=== PATIENT | male | born 1990 | race Two or more races ===

== ENCOUNTER 2022-08-20 12:22 | Emergency (ER) | payer OTHER, SELFPAY ==
[2022-08-20 13:19] VITALS: BP 127/76; PULSE 61; RESP 18; TEMP 36.6; O2SAT 99; BMI 20.2
[2022-08-20 13:49] LABS: MANUAL DIFF FLAG NO
[2022-08-20 13:52] LABS: Basophils Absolute Auto 0.1 X10*3/uL (0.0-0.2); Basophils Percent Auto 0.9 % (0-2); Eosinophils Absolute Auto 0.2 X10*3/uL (0.0-0.4); Eosinophils Percent Auto 3.6 % (0-4); Hematocrit 44.7 % (42.0-52.0); Hemoglobin 15.3 g/dl (14.0-18.0); Lymphocytes Absolute Auto 2.2 X10*3/uL (1.2-4.9); Lymphocytes Percent Auto 38.1 % (20-40); Mean Corpuscular HGB Conc 34.2 g/dl (31.0-36.0); Mean Corpuscular Hemoglobin 30.1 pg (27.0-33.0); Mean Corpuscular Volume 87.8 fL (80.0-98.0); Mean Platelet Volume 11.5 fL (9.4-12.4); Monocytes Absolute Auto 0.5 X10*3/uL (0.1-1.2); Monocytes Percent Auto 8.3 % (2-11); Neutrophils Absolute Auto 2.8 x10*3/uL (2.0-8.3); Neutrophils Percent Auto 49.1 % (45-73); Platelet Count 280 X10*3/uL (160-400); Red Blood Count 5.09 X10*6/uL (4.60-5.80); Red Cell Distribution Width 12.6 % (11.0-16.0); White Blood Count 5.8 X10*3/uL (4.8-10.8)
[2022-08-20 13:53] LABS: Appearance Urine Clear; Color Urine Yellow; Glucose Urine UA Negative (Negative); Leukocyte Esterase Urine Negative (Negative); Nitrite Urine Negative (Negative); Urine Blood Negative (Negative); Urine Ketones Negative (Negative); Urine Protein Negative (Neg-Trace)
[2022-08-20 14:03] LABS: Amphetamine Screen Urine Not Detected (Not Detect); Barbiturates, Urine Not Detected (Not Detect); Benzodiazepines Screen Urine Not Detected (Not Detect); Cannabinoid Screen Urine Not Detected (Not Detect); Cocaine Screen Urine Not Detected (Not Detect); Fentanyl, urine Not Detected (Not Detect); Opiate Screen Urine Not Detected (Not Detect); Phencyclidine Screen Urine Not Detected (Not Detect)
[2022-08-20 14:04] LABS: Alanine Aminotransferase 14 U/L (0-40); Albumin Level 4.9 g/dL (3.5-5.0); Alkaline Phosphatase 79 U/L (39-117); Anion Gap 15 (12-20); Aspartate Amino Transferase 19 U/L (5-37); Bilirubin Direct 0.7 mg/dL (0.0-0.5); Bilirubin Total 2.8 mg/dL (0.0-1.0); Blood Urea Nitrogen 6 mg/dL (9-16); Calcium 9.9 mg/dL (8.4-10.2); Carbon Dioxide 27 mmol/L (22-29); Chloride 104 mmol/L (96-108); Creatinine Clr Calc Pharmacy 124.6; Estimated Glomerular Filt Rate > 60; Glucose Random 93 mg/dL (60-115); Lipase 18 U/L (8-78); Potassium 4.1 mmol/L (3.3-5.1); Sodium 142 mmol/L (135-145); Total Protein 7.8 g/dL (6.5-8.0)
[2022-08-20 14:23] LABS: COVID-19 Test Negative (Negative); IDNOW Serial# 55D5AD1C
--- NOTE | 2022-08-20 16:34 | MHC.CARE ---
BHN Smart sheet completed att
--- OUTSIDE RECORDS SUMMARY | 2022-08-20 16:39 | XMS_ITS | Continuity of Care Document ---
:1990 Author Organization [facility] Address [address] [place] [address]- Care Team Providers Name Role Phone Not on Staff, PCP Primary Care Physician Unavailable Encounter [facility] Date(s): 08/03/22 - 08/04/[address] [address]- Encounter Diagnosis Malaise and fatigue (Final) - 08/03/22 Discharge Disposition: A-D/C Home Attending Physician: Khai Johnson MD Admitting Physician: Khai Johnson MD Referring Physician: Not on Staff, Referring MD Allergies, Adverse Reactions, Alerts No Known Allergies Medications acetaminophen 325 mg oral capsule 2 capsule = 650 mg, By Mouth, Every 4 hours, PRN as needed for pain, # 90 capsule, 0 Refills, Acute 08/03/23 23:17:00 EDT, 08/03/22 23:17:00 EDT, Capsule, [facility]/pharmacy #[id number], Partial fill upon patient request if the prescription is for a schedule II o... Start Date: 08/03/22 Stop Date: 08/03/23 Status: Orderedibuprofen 400 mg oral tablet 400 mg, 1, tablet, By Mouth, Every 4 hours, PRN, # 60 tablet, Refills 0, Tot. Refills 0, Acute 08/03/23 23:17:00 EDT, for pain, 08/03/22 23:17:00 EDT, Route to Pharmacy Electronically, [id number], Partial fill upon patient request if the presc... Start Date: 08/03/22 Stop Date: 08/03/23 Status: Orderedondansetron 4 mg oral tablet, disintegrating 1 tablet = 4 mg, By Mouth, Every 8 hours, PRN as needed for nausea/vomiting, # 12 tablet, 0 Refills,Maintenance, 06/16/22 16:06:00 EDT, DIS Tablet, [id number], Partial fill upon patient request if the prescription is for a schedule II opioid... Start Date: 06/16/22 Status: OrderedPepcid 20 mg oral tablet 1 tablet = 20 mg, By Mouth, Daily, # 30 tablet, 0 Refills, Maintenance, 06/16/22 16:07:00 EDT, Tablet, [id number], Partial fill upon patient request if the prescription is for a schedule II opioid drug. Start Date: 06/16/22 Status: Ordered Results Orders for Microbiology Reports Name Date Malaria Smear 08/03/22 Microbiology Reports TEST:Malaria Smear STATUS:Auth (Verified) BODY SITE: SOURCE:Blood COLLECTED DATE/TIME:08/03/22 7:38 PMMalaria Smear SPECIMEN DESCRIPTION : BLOOD SPECIAL REQUESTS : NONE DIRECT EXAM : NO INTRA OR EXTRA-ERYTHROCYTIC PARASITES OBSERVED ON THIN SMEARS NO PARASITES OBSERVED ON THICK SMEARS REPORT STATUS : FINAL 08/04/2022 Vital Signs Most recent to oldest 1 2 3 [Reference Range]: Oxygen Saturation [94-100 98 % 98 % 98 % %] (08/03/22 11:01 PM) (08/03/22 7:44 PM) (08/03/22 6:48 PM) Pulse Rate [55-90 bpm] 79 bpm 73 bpm 68 bpm (08/03/22 11:01 PM) (08/03/22 7:44 PM) (08/03/22 6:48 PM) Blood Pressure 114/73 mm Hg 116/79 mm Hg 123/72 mm Hg [90-138/55-84 mm Hg] (08/03/22 11:01 PM) (08/03/22 7:44 PM) (09/14 6:48 PM) Respiratory Rate [16-30 18 br/min 17 br/min 18 br/mi n br/min] (08/03/22 11:01 PM) (08/03/22 7:44 PM) (08/03/22 6:48 PM) Temperature [96.8-100.4 98.6 DegF 98.4 DegF DegF] (08/03/22 7:44 PM) (08/03/22 6:48 PM) Mode of Delivery (Oxygen) Room air Room air Room a ir (08/03/22 11:01 PM) (08/03/22 7:44 PM) (08/03/22 6:48 PM) Blood pressure sites Arm, left Arm, left Arm, right (08/03/22 11:01 PM) (08/03/22 7:44 PM) (08/03/22 6:48 PM) Temperature Route Oral Oral (08/03/22 7:44 PM) (08/03/22 6:48 PM) Patient Care team information PersonnelName: Not on Staff, PCP
--- OUTSIDE RECORDS SUMMARY | 2022-08-20 16:40 | XMS_ITS | Continuity of Care Document ---
:1990 Author Organization [facility] Address [address] [place] [address]- Care Team Providers Name Role Phone Not on Staff, PCP Primary Care Physician Unavailable Encounter [facility] Date(s): 06/16/22 - 06/16/[address] [address]- Encounter Diagnosis Abdominal pain (Final) - 06/16/22 Dyspepsia (Final) - 06/16/22 Discharge Disposition: A-D/C Home Attending Physician: Carmen Gutiérrez MD Admitting Physician: Carmen Gutiérrez MD Referring Physician: Not on Staff, Referring MD Allergies, Adverse Reactions, Alerts No Known Allergies Medications ondansetron 4 mg oral tablet, disintegrating 1 tablet [...] opioid drug. Start Date: 06/16/22 Status: Ordered Vital Signs Most recent to oldest 1 2 3 [Reference Range]: Oxygen Saturation [94-100 %] 100 % 98 % 96 % (06/16/22 2:58 PM) (06/16/22 12:49 PM) (06/16/22 10 :05 AM) Pulse Rate [55-90 bpm] 72 bpm 68 bpm 80 bpm (06/16/22 2:58 PM) (06/16/22 12:49 PM) (06/16/22 10 :05 AM) Blood Pressure [90-138/55-84 106/69 mm Hg 108/71 mm Hg 107 /70 mm Hg mm Hg] (06/16/22 2:58 PM) (06/16/22 12:49 PM) (06/16/22 10 :05 AM) Respiratory Rate [16-30 16 br/min 18 br/min 16 br/mi n br/min] (06/16/22 2:58 PM) (06/16/22 12:49 PM) (06/16/22 10 :05 AM) Temperature [96.8-100.4 98.4 DegF 98.6 DegF DegF] (06/16/22 12:49 PM) (06/16/22 10:05 AM) Mode of Delivery (Oxygen) Room air Room air (06/16/22 12:49 PM) (06/16/22 9:56 AM) Blood pressure sites Arm, left (06/16/22 12:49 PM) Temperature Route Oral Oral (06/16/22 12:49 PM) (06/16/22 10:05 AM)
--- NOTE | 2022-08-20 16:43 | ED_ITS ---
HPI - General Adult General Chief complaint: General Medical Stated complaint: CRISIS Time Seen by Provider: 08/20/22 15:52 Source: patient Mode of arrival: ambulatory Limitations: language barrier (Patient is from [place], he is Pashtun and he speaks Serbian) History of Present Illness HPI narrative: 31-year-old male who presents emergency department for evaluation abdominal pain, nausea, vomiting, depression and suicidal ideation. The patient states that he has been experiencing abdominal pain for approximately 2 months. He points to his epigastric and left upper quadrant when asked to localize the wanda n. States the pain is a constant, burning sensation which is worse immediately after he eats. He states he is not able to eat secondary to his pain. He has had nausea with 1-2 episodes of vomiting per day. The patient states that he had similar pain several years ago while he was in [facility] and was told that his pain was secondary to depression. The patient has been seen by a clinic in [place] and also at [facility] for this problem. He was started on a medication for the clinic which did help the pain but he is now office medication in the pain is returned. He states that he has lost his appetite secondary to the pain. The patient immigrated from [facility] approximately 1 year prior. He is getting support from [employer]. There is a [employer] worker here with him. The work told me that the patient's roommate had a heart attack and that this event made the patient more anxious and depressed. The patient told me he has been depressed for approximately 2-3 weeks. He describes this feeling as a constant sadness. He states he has had a similar feeling in the past but has never been treated for depression. Patient told the [employer] worker that if he did not get help for his abdominal pain he would consider hurting himself. The patient told me that he is depressed, he denied being suicidal, he states that he has no plan to hurt himself at this time. He has not hurt himself in the past. He denies homicidal ideation or the intent to hurt anyone else as well. The patient did have blood work at [facility] and the [employer] worker told me that his bilirubin was high. The patient may have had hepatitis C in [facility] but he is uncertain. The patient does have an appointment to see gastroenterology in September. He also has follow-up with a [facility] consult for his depression. Related Data Previous Rx's Medication Instructions Recorded omeprazole 20 mg capsule,delayed 20 mg PO DAILY 30 days #30 caps 08/20/22 release Allergies Allergy/AdvReac Type Severity Reaction Status Date / Time No Known Allergies Allergy Verified 08/20/22 16:42 Review of Systems Review of Systems: Yes all other systems are reviewed and are negative [facility] Past Medical History [facility] Narrative: Past medical history: None. Past surgical history: None. Social history: The patient uses oral tobacco/snuff. Denies alcohol use. He denies drug use. He is from [facility], he is Pashtun and speaks Serbian. He understands some [place] but needs a Serbian research director Social History Social History Advance Directives: No Physical Exam ED Vital Signs: Vital Signs - 24 hr 08/20/22 13:19 Temperature 98 F Pulse Rate 61 Respiratory Rate 18 Blood Pressure 127/76 Pulse Oximetry 99 Oxygen Delivery Method Room Air BMI result Body Mass Index 20.2 Const Other: Awake, alert, male patient, he is very thin (BMI 20.2), he is pleasant, he is cooperative, he does not appear to be in distress. Answers all questions appropriately. [facility] Head: Yes normal to inspection, Yes normocephalic and Yes atraumatic Ears: external ears normal General nose exam: Normal external nose present Face and sinus: Yes normal facial exam Mouth: Normal oral and palatal mucosa present Throat: Yes posterior oropharynx normal Eyes General: appearance normal, both eyes and all related structures Pupils: Equal, round and reactive pupils present Neck Neck: Yes normal visual inspection, Yes no lymphadenopathy, Yes trachea midline and Yes supple Chest Chest palpation & inspection: normal inspection of the chest and normal palpation of entire chest wall Resp Effort & Inspection: normal respiratory effort and able to speak in complete sentences Auscultation: clear to auscultation bilaterally Cardio Rate: regular rate Rhythm: regular rhythm Heart sounds: S1 normal heart sound present, S2 normal heart sound present and no murmurs GI Inspection: Yes normal to inspection Palpation (GI): Soft to palpation, Tenderness to palpation present (GI) in the epigastrum (Moderate) and in the LUQ (Mild) and no guarding Auscultation: normal bowel sounds General: Yes no CVA tenderness Back/Spine/Pelvis Back: no CVA tenderness Skin General skin exam: no rashes or lesions noted Neuro Cranial nerves: Yes CN's II-XII intact bilaterally and Yes Equal, round and reactive pupils present Cognition (Neuro): normal cognition Motor exam (neuro): 5/5 motor strength present throughout Extrem General: Yes normal to inspection Psych Appearance: grossly normal Speech and movement: Normal speech and movement present Affect: normal affect Attitude: cooperative Thought process: Normal thought process present Thought content: Normal thought content present Course Course Course Narrative: 31-year-old male who presents emergency department for evaluation of epigastric, burning like abdominal pain times weeks, loss of appetite nausea and with associated depression. Patient's physical examination did reveal epigastric and left upper quadrant tenderness otherwise was unremarkable. The patient's labora tory evaluation included a CBC, CMP, urinalysis and urine tox screen all of which were negative except for an elevated total bilirubin of 2.8. 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 Patient was reported to have hep atitis profile to the patient's labs hepatitis profile (A,B and C). Patient's pain was treated with Maalox 30 cc, viscous lidocaine 10 cc and 10 cc orally. Patient was started on Prilosec 30 mg once a day. I told her that he needs to be on this for 2 months. Patient does have a GI follow-up as an outpatient. At this time the patient denies being suicidal he states he just want to get help for his abdominal pain. He also denies being homicidal or wanting to injure others. The patient does have a referral to a crisis counselor as an outpatient therefore I do not think he needs to be seen by our [facility] provider. Medical Decision Making Lab Data Lab results reviewed: Yes I reviewed the patient's lab results. Result diagrams: 08/20/22 13:36 08/20/22 13:36 Labs: Lab Results 08/20/22 08/20/22 08/20/22 Range/Units 13:36 13:36 13:36 WBC 5.8 (4.8-10.8) X10*3/uL RBC 5.09 (4.60-5.80) X10*6/uL Hgb 15.3 (14.0-18.0) g/dl Hct 44.7 (42.0-52.0) % MCV 87.8 (80.0-98.0) fL MCH 30.1 (27.0-33.0) pg MCHC 34.2 (31.0-36.0) g/dl RDW 12.6 (11.0-16.0) % Plt Count 280 (160-400) X10*3/uL MPV 11.5 (9.4-12.4) fL Immature Gran % (Auto) 0.0 (0.0-0.4) % Neut % (Auto) 49.1 (45-73) % Lymph % (Auto) 38.1 (20-40) % [place] % (Auto) 8.3 (2-11) % Eos % (Auto) 3.6 (0-4) % Baso % (Auto) 0.9 (0-2) % Lymph # (Auto) 2.2 (1.2-4.9) X10*3/uL [place] # (Auto) 0.5 (0.1-1.2) X10*3/uL Eos # (Auto) 0.2 (0.0-0.4) X10*3/uL Baso # (Auto) 0.1 (0.0-0.2) X10*3/uL Abs Immat Gran (auto) 0.00 (0.00-0.03) X10*3/uL Absolute Neuts (auto) 2.8 (2.0-8.3) x10*3/uL Absolute Nucleated RBC 0.000 (0.0-0.012) X10*3/uL Nucleated RBC % (auto) 0.0 (0.0-0.2) /100WBC Sodium 142 (135-145) mmol/L Potassium 4.1 (3.3-5.1) mmol/L Chloride 104 (96-108) mmol/L Carbon Dioxide 27 (22-29) mmol/L Anion Gap 15 (12-20) BUN 6 L (9-16) mg/dL Creatinine 0.76 (0.5-1.4) mg/dL Estim Creat Clear Calc 124.6 Estimated GFR > 60 Random Glucose 93 (60-115) mg/dL Calcium 9.9 (8.4-10.2) mg/dL Total Bilirubin 2.8 H (0.0-1.0) mg/dL Direct Bilirubin 0.7 H (0.0-0.5) mg/dL AST 19 (5-37) U/L ALT 14 (0-40) U/L Alkaline Phosphatase 79 (39-117) U/L Total Protein 7.8 (6.5-8.0) g/dL Albumin 4.9 (3.5-5.0) g/dL Lipase 18 (8-78) U/L Urine Color Urine Appearance Urine pH (5.0-9.0) Ur Specific [place] (1.005-1.025) Urine Protein (Neg-Trace) mg/dL Urine Glucose (UA) (Negative) mg/dL Urine Ketones (Negative) mg/dL Urine Blood (Negative) Urine Nitrite (Negative) Ur Leukocyte Esterase (Negative) Urine Opiates Screen (Not Detect) Urine Fentanyl Screen (Not Detect) Ur Barbiturates Screen (Not Detect) Ur Phencyclidine Scrn (Not Detect) Ur Amphetamines Screen (Not Detect) U Benzodiazepines Scrn (Not Detect) Urine Cocaine Screen (Not Detect) U Marijuana (THC) Screen (Not Detect) COVID-19 ([facility]) Negative (Negative) COVID-19 Clin Com See Note 08/20/22 08/20/22 Range/Units 13:36 13:36 WBC (4.8-10.8) X10*3/uL RBC (4.60-5.80) X10*6/uL Hgb (14.0-18.0) g/dl Hct (42.0-52.0) % MCV (80.0-98.0) fL MCH (27.0-33.0) pg MCHC (31.0-36.0) g/dl RDW (11.0-16.0) % Plt Count (160-400) X10*3/uL MPV (9.4-12.4) fL Immature Gran % (Auto) (0.0-0.4) % Neut % (Auto) (45-73) % Lymph % (Auto) (20-40) % [place] % (Auto) (2-11) % Eos % (Auto) (0-4) % Baso % (Auto) (0-2) % Lymph # (Auto) (1.2-4.9) X10*3/uL [place] # (Auto) (0.1-1.2) X10*3/uL Eos # (Auto) (0.0-0.4) X10*3/uL Baso # (Auto) (0.0-0.2) X10*3/uL Abs Immat Gran (auto) (0.00-0.03) X10*3/uL Absolute Neuts (auto) (2.0-8.3) x10*3/uL Absolute Nucleated RBC (0.0-0.012) X10*3/uL Nucleated RBC % (auto) (0.0-0.2) /100WBC Sodium (135-145) mmol/L Potassium (3.3-5.1) mmol/L Chloride (96-108) mmol/L Carbon Dioxide (22-29) mmol/L Anion Gap (12-20) BUN (9-16) mg/dL Creatinine (0.5-1.4) mg/dL Estim Creat Clear Calc Estimated GFR Random Glucose (60-115) mg/dL Calcium (8.4-10.2) mg/dL Total Bilirubin (0.0-1.0) mg/dL Direct Bilirubin (0.0-0.5) mg/dL AST (5-37) U/L ALT (0-40) U/L Alkaline Phosphatase (39-117) U/L Total Protein (6.5-8.0) g/dL Albumin (3.5-5.0) g/dL Lipase (8-78) U/L Urine Color Yellow Urine Appearance Clear Urine pH 7.0 (5.0-9.0) Ur Specific [place] 1.010 (1.005-1.025) Urine Protein Negative (Neg-Trace) mg/dL Urine Glucose (UA) Negative (Negative) mg/dL Urine Ketones Negative (Negative) mg/dL Urine Blood Negative (Negative) Urine Nitrite Negative (Negative) Ur Leukocyte Esterase Negative (Negative) Urine Opiates Screen Not Detected (Not Detect) Urine Fentanyl Screen Not Detected (Not Detect) Ur Barbiturates Screen Not Detected (Not Detect) Ur Phencyclidine Scrn Not Detected (Not Detect) Ur Amphetamines Screen Not Detected (Not Detect) U Benzodiazepines Scrn Not Detected (Not Detect) Urine Cocaine Screen Not Detected (Not Detect) U Marijuana (THC) Screen Not Detected (Not Detect) COVID-19 ([facility]) (Negative) COVID-19 Clin Com ECG Data Attestation: I personally reviewed and interpreted this ECG as follows: Interpretation: 1710: Sinus bradycardia with a rate of 56, normal MN interval, QRS duration QTC interval, no ST segment elevation, no ST segment depression except for the bradycardia this is a normal EKG. Discharge Plan Discharge Clinical Impression: Gastritis, Depression Patient Disposition: Home, Self-Care Instructions: Gastritis (ED) Additional Instructions: Your stomach pain is caused by too much acid in your stomach which is causing inflammation of your stomach and your esophagus (the tube that connects your mouth to your stomach). The treatment is to shut off your acid production with the medication called Prilosec (omeprazole) 20 mg once a day for 2 months. Take Prilosec (omeprazole) 20 mg pills, 1 pill once a day for 1 month. This medication shuts off your acid production and lets the inflammation in your stomach and esophagus heal. You will also need to follow-up with a heavy media operator for further evaluation of your pain. Make sure you keep the appointment in September of 2022. Follow-up with the [facility] crisis counselor to help with your depression. Your blood work today was normal which is reassuring. You have a slight elevation in your total bilirubin of 2.8 but your indirect bilirubin 2.1 which is most likely normal for you. I did add a hepatitis profile which will test you for hepatitis A, hepatitis-B and hepatitis-C, this will not come back today and your doctor can check these results for you. Your EKG (electrical picture of your heart) was also normal which is reassuring. Follow-up with your doctor in 2 days. Please return to the emergency department if your symptoms get worse or if you develop any symptoms that are concerning to you. If you feel like you are going to hurt yourself or hurt others then you should return to the emergency department and we can get you help. Prescriptions: New omeprazole 20 mg capsule,delayed release(DR/EC) 20 mg PO DAILY 30 Days Qty: 30 0RF
--- NOTE | 2022-08-20 16:51 | ECG_ITS ---
Test Reason : ABDOMINAL PAIN Blood Pressure : / mmHG Vent. Rate : 056 BPM Atrial Rate : 056 BPM P-R Int : 164 ms QRS Dur : 080 ms QT Int : 402 ms P-R-T Axes : 068 053 033 degrees QTc Int : 387 ms Sinus bradycardia Possible Early repolarization Otherwise normal ECG No previous ECGs available Referred By: Blas Rosario Electronically Signed By:BRIAN MCKENNA MD
[2022-08-20] MEDS: Magnesium Hydrox/Alum Hydrox 30 ML ORAL.SUSP PO (16:54)
[2022-08-20] MEDS: Lidocaine HCl Viscous 2 % 15 ML SOLUTION 10 ML PO (16:55)
[2022-08-20] MEDS: PHENobarb/Hyoscy/Atropine/Scop 10 ML ELIXIR PO (16:58)
[2022-08-23 09:48] LABS: HBS Num1 98.12 mIU/mL (0-7.99); HBc Num1 0.11 S/CO (0.00-0.79); HBsAGNum1 0.18 S/CO (0.00-0.99); Hepatitis B Core Antibody Nonreactive (Nonreactive); Hepatitis B Surface Antigen Negative (Negative); ~HepC Num1 0.16 S/CO (0.00-0.79); ~Hepatitis B Surface Antibody REACTIVE (Nonreactive); ~Hepatitis C Antibody Nonreactive (Nonreactive)
[2022-08-25 08:01] LABS: Hepatitis A Antibody IgM 0.29 Index (0-0.79); ~Hepatitis A Antibody IgM Nonreactive (Nonreactive)
== END 2022-08-20 18:05 | disposition home or self-care (01) ==
PROVIDERS: Emergency Provider Emergency Medicine Emergency Medical Services
DX: F33.1 Major depressive disorder, recurrent, moderate (principal); R45.851 Suicidal ideations; R10.9 Unspecified abdominal pain; K29.70 Gastritis, unspecified, without bleeding; Z20.822 Contact with and (suspected) exposure to COVID-19; Z79.899 Other long term (current) drug therapy
CPT/HCPCS: 80048; 80076; 80307; 81003; 83690; 85025; 86704; 86706; 86709; 86803; 87340; 87635; 93005; 99283

== ENCOUNTER 2022-10-27 09:34 | Emergency (ER) | payer OTHER, SELFPAY ==
[2022-10-27 09:56] VITALS: BP 132/87; PULSE 72; RESP 18; TEMP 36.6; O2SAT 99; BMI 22.7
[2022-10-27 10:31] LABS: Hematocrit 45.8 % (42.0-52.0); Hemoglobin 15.9 g/dl (14.0-18.0); Mean Corpuscular HGB Conc 34.7 g/dl (31.0-36.0); Mean Corpuscular Hemoglobin 29.9 pg (27.0-33.0); Mean Corpuscular Volume 86.3 fL (80.0-98.0); Mean Platelet Volume 11.9 fL (9.4-12.4); Platelet Count 235 X10*3/uL (160-400); Red Blood Count 5.31 X10*6/uL (4.60-5.80); Red Cell Distribution Width 11.8 % (11.0-16.0); White Blood Count 7.8 X10*3/uL (4.8-10.8)
[2022-10-27 10:56] LABS: Alanine Aminotransferase 22 U/L (0-40); Albumin Level 4.8 g/dL (3.5-5.0); Alkaline Phosphatase 82 U/L (39-117); Anion Gap 10 (12-20); Aspartate Amino Transferase 20 U/L (5-37); Bilirubin Direct 0.3 mg/dL (0.0-0.5); Bilirubin Total 1.2 mg/dL (0.0-1.0); Blood Urea Nitrogen 6 mg/dL (9-16); Calcium 10.3 mg/dL (8.4-10.2); Carbon Dioxide 31 mmol/L (22-29); Chloride 103 mmol/L (96-108); Creatinine Clr Calc Pharmacy 122.2; Estimated Glomerular Filt Rate > 60; Glucose Random 95 mg/dL (60-115); Lipase 19 U/L (8-78); Potassium 3.9 mmol/L (3.3-5.1); Sodium 140 mmol/L (135-145); Total Protein 7.8 g/dL (6.5-8.0)
--- NOTE | 2022-10-27 10:57 | ED.ABDPAIN ---
HPI - Abdominal Pain General Chief Complaint: Abdominal Pain Stated Complaint: Severe abd pain Time Seen by Provider: 10/27/22 10:49 Source: patient Mode of arrival: ambulatory Limitations: no limitations History of Present Illness HPI narrative: 32 yo male presenting to the ER for evaluation of acute on chronic abdominal pain. He is from [facility] and staying with a [employer]ist episc[employer]. He has been to the multiple ERs in the last few months for abdominal pain. He has been seen by GI doctors at [facility]. He was recently diagnosed with Endolimax evelyn on his stool studies on 10/14. He completed a course of tinidazole. He also recently had COVID with worsening abdominal pains. he was last seen in [facility] emergency department in the middle of September. He had normal blood work and normal CT scans. He next has an appointment with GI in December for possible endoscopy and colonoscopy for further evaluation. He has been on antacid medications with no relief. He has been eating and drinking normally. Stools are normal. His pain comes and goes, intermittently severe in nature. 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 He vomited once this morning. MD elicited complaint: abdominal pain Onset (ago): month(s) Pain Consistency: intermittent Location: diffuse Severity: severe Pain scale (0-10): 10 Quality: stabbing Migration to: no migration Exacerbating factors: nothing Relieving factors: nothing Context: history of similar episodes Associated symptoms: nausea and vomiting Related Data Previous Rx's Medication Instructions Recorded omeprazole 20 mg capsule,delayed 20 mg PO DAILY 30 days #30 caps 08/20/22 release metronidazole 500 mg tablet 500 mg PO Q8H 10 days #30 tabs 10/27/22 ondansetron 4 mg disintegrating 4 mg PO Q8H PRN nausea and 10/27/22 tablet vomiting #10 tabs tramadol 50 mg tablet 50 mg PO Q8H PRN severe pain 10/27/22 (scale score 7-10) #8 tabs Allergies Allergy/AdvReac Type Severity Reaction Status Date / Time No Known Allergies Allergy Verified 08/20/22 16:42 Review of Systems Review of Systems Yes all other systems are reviewed and are negative Physical Exam ED Vital Signs: Vital Signs - 24 hr 10/27/22 09:56 Temperature 98 F Pulse Rate 72 Respiratory Rate 18 Blood Pressure 132/87 Pulse Oximetry 99 Oxygen Delivery Method Room Air BMI result Body Mass Index 22.7 Appearance: Alert. Oriented X3. No acute distress. Eyes: Pupils equal, round and reactive to light. ENT: Pharynx normal. Neck: Normal inspection. Neck supple. CVS: Normal heart rate and rhythm. Pulses normal. Respiratory: No respiratory distress. Breath sounds normal. Abdomen: Soft and nontender. hyperactive +BS x4 Skin: Skin warm and dry. Normal skin color. Normal skin turgor. No rashes. Extremities: No lower extremity edema. Neuro: Oriented X 3. No motor deficit. No sensory deficit. Course Course Course Narrative: 32 yo male presenting with acute on chronic diffuse abdominal pain. The ERs in seen by GI. Has outpatient GI follow-up. Is tolerating p.o. with 1 episode of vomiting today. His abdomen is soft and nontender but he does have hyperactive bowel sounds. He did have brief relief taking the antibiotic for the amoeba. Pain got worse after treatment ended. Lab workup is pending. No need for additional imaging at this moment. Will get [facility] records. Reevaluation(s) Reevaluation #1: [facility] records reviewed. He had normal CT scans 2 and half weeks ago. Labs today showed normal CBC. Labs otherwise largely unremarkable. He is comfortable, sleeping between care. At this point we will plan to discharge him on other treatment course for his Endolimax evelyn with flagyl this time. will prescribe PRN zofran and tramadol for severe pain. Will refer to our GI for 2nd opinion and possible earlier follow up as they cannot be seen until December. Stable for d/c home. Medical Decision Making Differential Diagnosis Differential Diagnoses: The differential diagnosis associated with the presentation includes diverticulitis, appendicitis, cholecystitis, bacterial gastroenteritis, viral gastroenteritis, parasitic infection, gastric ulcer, PUD, H pylori Lab Data MDM Lab Attestation statement: I reviewed the patient's lab results. independently reviewed the labs -normal CBC. no significant electrolyte abnormality or metabolic derangement in the metabolic panel Result Diagrams: 10/27/22 10:25 10/27/22 10:26 Labs: Lab Results 10/27/22 10/27/22 Range/Units 10:25 10:26 WBC 7.8 (4.8-10.8) X10*3/uL RBC 5.31 (4.60-5.80) X10*6/uL Hgb 15.9 (14.0-18.0) g/dl Hct 45.8 (42.0-52.0) % MCV 86.3 (80.0-98.0) fL MCH 29.9 (27.0-33.0) pg MCHC 34.7 (31.0-36.0) g/dl RDW 11.8 (11.0-16.0) % Plt Count 235 (160-400) X10*3/uL MPV 11.9 (9.4-12.4) fL Absolute Nucleated RBC 0.000 (0.0-0.012) X10*3/uL Nucleated RBC % (auto) 0.0 (0.0-0.2) /100WBC Sodium 140 (135-145) mmol/L Potassium 3.9 (3.3-5.1) mmol/L Chloride 103 (96-108) mmol/L Carbon Dioxide 31 H (22-29) mmol/L Anion Gap 10 L (12-20) BUN 6 L (9-16) mg/dL Creatinine 0.79 (0.5-1.4) mg/dL Estim Creat Clear Calc 122.2 Estimated GFR > 60 Random Glucose 95 (60-115) mg/dL Calcium 10.3 H (8.4-10.2) mg/dL Total Bilirubin 1.2 H (0.0-1.0) mg/dL Direct Bilirubin 0.3 (0.0-0.5) mg/dL AST 20 (5-37) U/L ALT 22 (0-40) U/L Alkaline Phosphatase 82 (39-117) U/L Total Protein 7.8 (6.5-8.0) g/dL Albumin 4.8 (3.5-5.0) g/dL Lipase 19 (8-78) U/L Radiology Impression Discussion of test interpretation with radiology: I have reviewed the radiologist's reading. Radiologist Impression: normal CT scan of the abdomen from October 08 Independent Historian Clinical information obtained from an independent historian. History obtained from or confirmed by: Friend External Record Review External record reviewed: Outpatient record, Prior outpatient labs and Outside ED record Prescription Management I considered prescription management with: Pain Medication, Antiviral and Antibiotic 2nd course of treatment for Endolimax w/ flagyl, zofran and prn tramadol Discharge Plan Discharge Clinical Impression: Abdominal pain Patient Disposition: Home, Self-Care Instructions: Abdominal Pain (ED) Additional Instructions: Take the prescribed antibiotic as directed, complete the entire course. Take the prescribed nausea medication as needed. Take the prescribed pain medication as needed for severe pain only. Follow-up with your GI provider. Recommend following up with our GI doctor for 2nd opinion. Prescriptions: New metronidazole 500 mg tablet 500 mg PO Q8H 10 Days Qty: 30 0RF ondansetron 4 mg tablet,disintegrating 4 mg PO Q8H PRN (Reason: nausea and vomiting) Qty: 10 0RF tramadol 50 mg tablet 50 mg PO Q8H PRN (Reason: severe pain (scale score 7-10)) Qty: 8 0RF No Action omeprazole 20 mg capsule,delayed release(DR/EC) 20 mg PO DAILY 30 Days Qty: 30 0RF Referrals: [facility] [place] Gastroenterology Services [Provider Group] Interventions: ED Discharge Assessment Last Done: 10/27/22 12:05 Discharge Date/Time: 10/27/22 12:09
--- NOTE | 2022-10-27 11:24 | PC.NURSE ---
Call placed to [facility] for recent discharge summary
== END 2022-10-27 12:09 | disposition home or self-care (01) ==
PROVIDERS: Emergency Provider Emergency Medicine Emergency Medical Services; PCP Physician Assistant
DX: R10.9 Unspecified abdominal pain (principal)
CPT/HCPCS: 36415; 80048; 80076; 83690; 85027; 99282; 99283

== ENCOUNTER 2022-11-05 11:10 | Outpatient (REF) | payer OTHER, SELFPAY ==
[2022-11-05 13:30] LABS: Hematocrit 47.1 % (42.0-52.0); Hemoglobin 16.3 g/dl (14.0-18.0); Mean Corpuscular HGB Conc 34.6 g/dl (31.0-36.0); Mean Corpuscular Volume 86.7 fL (80.0-98.0); Mean Platelet Volume 12.6 fL (9.4-12.4); Platelet Count 216 X10*3/uL (160-400); Red Blood Count 5.43 X10*6/uL (4.60-5.80); Red Cell Distribution Width 11.9 % (11.0-16.0)
[2022-11-05 13:59] LABS: Alanine Aminotransferase 23 U/L (0-40); Albumin Level 4.6 g/dL (3.5-5.0); Alkaline Phosphatase 71 U/L (39-117); Anion Gap 14 (12-20); Aspartate Amino Transferase 23 U/L (5-37); Bilirubin Total 1.2 mg/dL (0.0-1.0); Blood Urea Nitrogen 5 mg/dL (9-16); C Reactive Protein < 0.10 mg/dL (< or = 0.50); Calcium 9.7 mg/dL (8.4-10.2); Carbon Dioxide 27 mmol/L (22-29); Chloride 104 mmol/L (96-108); Estimated Glomerular Filt Rate > 60; Glucose Random 90 mg/dL (60-115); Iron 133 mcg/dL (45-160); Percent Iron Saturation 45 % (15-50); Potassium 4.6 mmol/L (3.3-5.1); Sodium 140 mmol/L (135-145); Total Iron Binding Capacity 294 mcg/dL (228-428); Total Protein 7.7 g/dL (6.5-8.0); Unsaturated Iron Binding 161 ug/dL
[2022-11-05 14:15] LABS: Ferritin 72 ng/mL (20-250); TSH reflex Free T4 0.49 uIU/mL (0.32-4.0)
[2022-11-05 14:31] LABS: Folate 10.4 ng/mL (> or = 4.0); Vitamin B12 183 pg/mL (200-900)
[2022-11-06 22:18] LABS: Immunoglobulin A 348 mg/dL (47-310)
[2022-11-08 23:28] LABS: Transglutaminase IgA <1.0 U/mL
== END 2022-11-05 11:11 | disposition home or self-care (01) ==
LOC: HO.LAB 11:10
PROVIDERS: PCP Physician Assistant; Visit Provider Internal Medicine
DX: R10.9 Unspecified abdominal pain (principal); R19.7 Diarrhea, unspecified; E80.4 Gilbert syndrome; Z87.891 Personal history of nicotine dependence
CPT/HCPCS: 36415; 80053; 82306; 82607; 82728; 82746; 82784; 83540; 84443; 85027; 86140; 86364; 99202

== ENCOUNTER 2022-11-08 15:19 | Outpatient (REF) | payer OTHER, SELFPAY ==
[2022-11-08 16:08] LABS: Leukocytes Stool Qualitative NEGATIVE (NEGATIVE)
[2022-11-12 19:58] LABS: Calprotectin, Fecal 51 mcg/g
== END 2022-11-08 15:20 | disposition home or self-care (01) ==
LOC: HO.LNP 15:19
PROVIDERS: Visit Provider Internal Medicine
DX: R10.9 Unspecified abdominal pain (principal); R19.7 Diarrhea, unspecified
CPT/HCPCS: 83993; 87177; 87209; 89055

== ENCOUNTER 2022-11-11 10:55 | Day surgery (SDC) | payer OTHER, SELFPAY ==
--- NOTE | 2022-11-10 13:42 | HO.ANESPROP2 ---
Documented by User: Laure Orta NP 11/10/22 13:43 HPI - Anesthesia Eval Consult details Narrative: 32yo M for Upper Endoscopy PMFSH Active Problems Active Problems: All Active Problems (Updated 11/05/22 @ 12:34 by Sofia Murillo MD) Unconjugated benign bilirubinemia (Acute) Diarrhea (Acute) Abdominal pain (Acute) Past Medical History Medical History Depression Surgical History Surgical History No pertinent past surgical history Social History Social History Patient Tobacco Use Status: Former Tobacco user Quit Date: 4 months ago Use of substances other than those prescribed or required for medical reasons: No Are you DNR?: No Advance Directives: No Advance Directives Information Provided: Yes Meds Allergies Allergy/AdvReac Type Severity Reaction Status Date / Time No Known Allergies Allergy Verified 11/11/22 11:58 Home Medications Medication Instructions Recorded Confirmed Last Taken Type simethicone 180 mg capsule 180 mg PO BID 11/05/22 11/11/22 Unknown History Exam Exam Date and Time: November 10, [id number] Pertinent Lab Results Pertinent Lab Results: Laboratory Tests 11/05/22 11/05/22 12:54 12:54 WBC 5.0 Hgb 16.3 Hct 47.1 Plt Count 216 Sodium 140 Potassium 4.6 Chloride 104 Carbon Dioxide 27 BUN 5 L Creatinine 0.71 Assessment and Plan Assessment Anesthesia Assessment: Chart Reviewed Documented by User: José Aparicio MD 11/11/22 14:27 PMFSH Past Medical History Medical History Depression Family History Family history of problems with anesthesia: No Surgical History Surgical History No pertinent past surgical history History of Problems with Anesthesia: No Social History Social History Patient Tobacco Use Status: Former Tobacco user Quit Date: 4 months ago Use of substances other than those prescribed or required for medical reasons: No Are you DNR?: No Advance Directives: No Advance Directives Information Provided: Yes Meds Allergies Allergy/AdvReac Type Severity Reaction Status Date / Time No Known Allergies Allergy Verified 11/11/22 11:58 Home Medications Medication Instructions Recorded Confirmed Last Taken Type simethicone 180 mg capsule 180 mg PO BID 11/05/22 11/11/22 Unknown History Exam Airway Mallampati Class: II TM Dist: >3cm Neck ROM: Full Loose/Missing/Broken Teeth: No Heart: [id number] Lungs: cta b/l Assessment and Plan Assessment Anesthesia Assessment: Anesthesia Plan Discussed Final Anesthetic Review Family History of Problems with Anesthesia: No History of Problems with Anesthesia: No NPO: Yes ASA Class: II Final Preanesthetic Review: No Changes in Pt Med Stat, Meds/Allgs Chart Reviewed, Consent Obtained/Reviewed and Anes Risks/Benef Reviewed Patient Risk: Intermediate Procedure Risk: Intermediate Assessment/Block/Sedation in SS: Assess/Block/Sedation-SS Anesthetic Plan Anesthetic Plan: MAC: and Agree w/ Assess. and Plan Disposition: Standard PACU
[2022-11-11 11:58] VITALS: BMI 19.2
[2022-11-11 12:09] VITALS: BP 109/72; PULSE 76; RESP 16; TEMP 36.9; O2SAT 99
[2022-11-11] MEDS: Lactated Ringers 1,000 ML 100 ML IVCONT (12:13)
--- NOTE | 2022-11-11 14:39 | P.OP_ITS ---
Operative Note Operative Note Date of Service: 11/11/22 Narrative: Procedure: Esophagogastroduodenoscopy Endoscopist: Sofia Murillo MD Indication: Abdominal pain Anesthesia Provider: Dr Ruben Coe Anesthesia Type: MAC Instrument: Olympus [id number] ?? EGD Procedure:?? The procedure, indications, preparation and potential complications were reviewed with the patient, with the help of a [place] official court interpreter, who indicated understanding and gave written informed consent to proceed. A physical exam was performed. The endoscope was introduced through the mouth, and advanced to the second part of duodenum. The mucosa was carefully examined on slow withdrawal of the endoscope. The patient tolerated the procedure well. There were no immediate complications.? ? EGD Findings:? * Esophagus:? Normal mucosa noted in the entire esophagus. The Z line was at 40 cm. Middle and lower esophagus forceps biopsies were obtained to rule out eosinophilic esophagitis. * Stomach:?Atrophic mucosa was noted in the body of the stomach with prominent vessels underneath. Random gastric biopsies were taken to rule out H Pylori infection. * Duodenum:? Normal mucosa was noted in the whole of the examined duodenum. Biopsies were taken from duodenal bulb and second portion of the duodenum to rule out celiac sprue. ? EGD Impressions:? * Normal esophagus (biopsy) * Atrophic gastritis (biopsy) * Normal duodenum (biopsy) ?? Recommendations:?? * Follow biopsy results. Our office will call or send a letter with results within 7-10 days. * If H pylori +, patient will be prescribed eradication therapy followed by test of cure. * Appearance suspicious for atrophic gastritis as above. B12 low on labs. Checking parietal cell and intrinsic factor Ab. Also checking TSH as can be sometimes associated with autoimmune thyroiditis. * Avoid NSAIDs. Above has been reviewed with the patient. Relevant educational hand outs were provided at discharge. ?
--- NOTE | 2022-11-11 14:40 | MHC.SHP ---
Pre-Procedural Eval Section A Date of Service: 11/11/22 The History & Physical has been completed within 30 days and I have reviewed it.: Yes Section B Chief Complaint: Abdominal pain Allergies: Allergies Allergy/AdvReac Type Severity Reaction Status Date / Time No Known Allergies Allergy Verified 11/11/22 11:58 Plan Diagnosis/Plan: Unchanged I have reviewed the history and physical and performed a pertinent physical examination on my patient. No changes have occurred unless specified. Time Spent With Patient Time: Total time managing care of this patient today ____ minutes.
[2022-11-11 15:01] VITALS: BP 110/75; PULSE 72; RESP 16; TEMP 36.9; O2SAT 97
[2022-11-11 15:16] VITALS: BP 121/83; PULSE 79; RESP 18; TEMP 36.9; O2SAT 99
== END 2022-11-11 15:47 | disposition home or self-care (01) ==
PROVIDERS: PCP Physician Assistant; Visit Provider Internal Medicine
PROC: 0DJ08ZZ Inspection of Upper Intestinal Tract, Via Natural or Artificial Opening Endoscopic (ICD-10-PCS; CPT 43235; principal; 2022-11-11 14:40)
DX: K29.40 Chronic atrophic gastritis without bleeding (principal); E80.4 Gilbert syndrome; Q39.8 Other congenital malformations of esophagus; F32.A Depression, unspecified; Z87.891 Personal history of nicotine dependence
CPT/HCPCS: 43239; 88305; 88342; J3010

== ENCOUNTER 2022-11-18 09:39 | Outpatient (REF) | payer OTHER, SELFPAY ==
[2022-11-18 11:37] LABS: TSH reflex Free T4 0.35 uIU/mL (0.32-4.0)
[2022-11-23 13:13] LABS: Parietal Cell Antibody <=20.0 Unit (<=20.0)
[2022-11-23 21:04] LABS: Intrinsic Factor Antibodies Negative (Negative)
== END 2022-11-18 09:40 | disposition home or self-care (01) ==
LOC: HO.LAB 09:39
PROVIDERS: PCP Physician Assistant; Visit Provider Internal Medicine
DX: K29.40 Chronic atrophic gastritis without bleeding (principal)
CPT/HCPCS: 36415; 83516; 84443; 86340

== ENCOUNTER → 2022-11-23 10:20 | Outpatient (BNVA) | payer OTHER, SELFPAY | PROVIDERS: PCP Physician Assistant; Visit Provider Internal Medicine | DX: R10.9 Unspecified abdominal pain (principal); R11.0 Nausea; R14.0 Abdominal distension (gaseous); R20.2 Paresthesia of skin; E53.8 Deficiency of other specified B group vitamins; E55.9 Vitamin D deficiency, unspecified; M79.609 Pain in unspecified limb | CPT/HCPCS: 99212 ==